=== PATIENT | female | born 1960 | race Caucasian/White ===

== ENCOUNTER 2016-07-16 07:58 | Emergency (ER) | payer OTHER ==
[2016-07-16 08:12] VITALS: BP 131/86
--- NOTE | 2016-07-16 08:35 | UC ---
Throat Pain/Nasal Jose Manuel HPI - HPI Summary HPI Summary: PATIENT PRESENTS WITH 2 DAYS OF WORSENING THROAT TIGHTNESS, HEAD CONGESTION AND DIFFICULTY SWALLOWING. SHE HAS HAD EXPOSURE TO STREP THROAT. SHE DENIES PAIN IN THROAT. SHE DENIES ALLERGIES. SHE HAS TAKEN SUDAFED WITHOUT RELIEF, BUT ONLY STARTED THE MEDICATION LAST EVENING. DENIES RUNNY NOSE. ENDORSES MILD NON -PRODUCTIVE COUGH AND EAR FULLNESS. FAMILY HISTORY POSITIVE FOR HTN, BUT OTHERWISE HEALTHY. NO SIGNIFICANT PERSONAL HISTORY AND PATIENT TAKES NO MEDICATIONS. SHE IS A NON-SMOKER. DENIES CHEST PAIN, SOB OR NECK PAIN. - History of Current Complaint Chief Complaint: UCGeneralIllness Stated Complaint: SWOLLEN GLANDS,SINUS,EAR PAIN Time Seen by Provider: 07/16/16 08:08 Hx Obtained From: Patient ?: No Onset/Duration: Gradual Onset Severity: Mild Pain Intensity: 2 Pain Scale Used: 0-10 Numeric Associated Signs & Symptoms: Positive: Dysphagia, Sinus Discomfort - Epiglottits Risk Factors Epiglottis Risk Factors: Negative - Allergies/Home Medications Allergies/Adverse Reactions: Allergies Allergy/AdvReac Type Severity Reaction Status Date / Time No Known Allergies Allergy Verified 07/16/16 08:11 Home Medications: Home Medications Ibuprofen TAB* [Advil TAB*] 400 mg PO ONCE PRN 07/16/16 [History Confirmed 07/16] Pseudoephedrine HCL ER TAB* [Sudafed 12 Hour*] 120 mg PO BEDTIME PRN 07/16/16 [ History Confirmed 07/16/16] PMH/Surg Hx/FS Hx/Imm Hx Previously Healthy: Yes - Surgical History Surgical History: Yes Surgery Procedure, Year, and Place: gallbladder - Family History Known Family History: Positive: Hypertension - Social History Occupation: Employed Full-time Lives: With Family Alcohol Use: Rare Substance Use Type: None Smoking Status (MU): Never Smoked Tobacco Review of Systems Constitutional: Negative Skin: Negative Eyes: Negative ENT: Sore Throat Respiratory: Cough Cardiovascular: Negative Motor: Negative Neurovascular: Negative Neurological: Negative All Other Systems Reviewed And Are Negative: Yes Physical Exam Triage Information Reviewed: Yes Appearance: Well-Appearing, No Pain Distress, Well-Nourished Vital Signs: Initial Vital Signs Temp 99.2 F 07/16/16 08:07 Pulse 79 07/16/16 08:07 Resp 16 07/16/16 08:07 BP 131/86 07/16/16 08:07 Pulse Ox 97 07/16/16 08:07 Vital Signs Reviewed: Yes Eye Exam: Normal Eyes: Positive: Conjunctiva Clear ENT: Positive: Pharynx normal, TMs normal Neck exam: Normal Neck: Positive: Supple, Nontender, No Lymphadenopathy Respiratory Exam: Normal Respiratory: Positive: Chest non-tender, Lungs clear Cardiovascular Exam: Normal Cardiovascular: Positive: RRR Musculoskeletal Exam: Normal Musculoskeletal: Positive: Strength Intact Skin Exam: Normal Throat Pain/Nasal Course/Dx - Course Course Of Treatment: STREP POSITIVE. PATIENT C/O DIFFICULTY SWALLOWING. RX FOR AMOXICILLIN AND PREDNISONE. ENCOURAGED NASAL SPRAYS AND RETURN PRECAUTIONS GIVEN. - Differential Dx/Diagnosis Differential Diagnosis/HQI/PQRI: Peritonsillar Abscess, Pharyngitis, Sinusitis, URI Provider Diagnoses: STREP THROAT Discharge - Discharge Plan Condition: Stable Disposition: HOME Prescriptions: Amoxicillin CAP* [Amoxicillin 500 MG CAP*] 500 mg PO Q12H #20 cap predniSONE TAB* [Deltasone TAB*] 50 mg PO DAILY #5 tab MDD 1 Patient Education Materials: Strep Throat (ED), Cold Symptoms (ED) Additional Instructions: Dx: Strep Throat You will need antibiotic medicine to treat your strep throat. Please take the antibiotic as directed. You should feel better within 2 to 3 days after you start antibiotics. You may return to work or school 24 hours after you start antibiotics. If you have any questions about your medications, please do no hesitate to call or talk with your pharmacist. How can I manage my symptoms? Use lozenges, ice, soft foods, or popsicles to soothe your throat. Drink juice, milk shakes, or soup if your throat is too sore to eat solid food. Drinking liquids can also help prevent dehydration. Gargle with salt water. Mix teaspoon salt in a 1 cup of warm water and gargle. This may help reduce swelling in your throat. Do not smoke. Nicotine and other chemicals in cigarettes and cigars can cause lung damage and make your symptoms worse. Ask your healthcare provider for information if you currently smoke and need help to quit. E-cigarettes or smokeless tobacco still contain nicotine. Talk to your healthcare provider before you use these products. How do I prevent the spread of strep throat? Wash your hands often. Use soap and water. Wash your hands after you use the bathroom, change a child's diapers, or sneeze. Wash your hands before you prepare or eat food. Do not share food or drinks. Replace your toothbrush after you have taken antibiotics for 24 hours. Humidifier in the home will help. Tylenol for discomfort. Take all medications as directed. Symptoms should resolve in 1-3 weeks. If symptoms become worse, please come back to or go to the ED. Your temperature was 99.2 at this visit. For any temps over 100.5, please take Tylenol for fevers. Your Blood Pressure was OK. Follow up with your PCP. Saline nasal sprays Prednisone 50mg daily for 5 days in the morning. Strep was positive. Amoxicillin rx to pharmacy.
== END 2016-07-16 08:49 | disposition home or self-care (01) ==
LOC: UCCORT 07:58
DX: J02.0 Streptococcal pharyngitis (principal); Z90.49 Acquired absence of other specified parts of digestive tract
CPT/HCPCS: 87651; 99202; G0463

== ENCOUNTER 2017-07-17 11:21 | Emergency (ER) | payer OTHER ==
[2017-07-17 12:05] VITALS: BP 118/74
--- NOTE | 2017-07-17 12:55 | UC ---
UC General HPI - HPI Summary HPI Summary: pt c/o sore throat since last pm. today has some mild nausea and diarrhea. no hx travel or recent antibiotic use - History of Current Complaint Chief Complaint: UCRespiratory Stated Complaint: ST/NAUSEA Time Seen by Provider: 07/17/17 12:43 Hx Obtained From: Patient Onset/Duration: Gradual Onset Pain Intensity: 7 Aggravating: nothing Alleviating: nothing Associated Signs & Symptoms: Positive: Diarrhea, Nausea. Negative: Cough, Fever , Headache, Vomiting - Allergy/Home Medications Allergies/Adverse Reactions: Allergies Allergy/AdvReac Type Severity Reaction Status Date / Time No Known Allergies Allergy Verified 07/17/17 11:59 Home Medications: Home Medications NK [No Home Medications Reported] 07/17/17 [History Confirmed 07/17/17] PMH/Surg Hx/FS Hx/Imm Hx Previously Healthy: Yes - Surgical History Surgical History: Yes Surgery Procedure, Year, and Place: gallbladder - Family History Known Family History: Positive: Hypertension - Social History Occupation: Employed Full-time Lives: With Family Alcohol Use: Rare Substance Use Type: None Smoking Status (MU): Never Smoked Tobacco - Immunization History Vaccination Up to Date: Yes Review of Systems Constitutional: Negative Skin: Negative Eyes: Negative ENT: Sore Throat Respiratory: Negative Cardiovascular: Negative Gastrointestinal: Diarrhea, Nausea Genitourinary: Negative Motor: Negative Neurovascular: Negative Musculoskeletal: Negative Neurological: Negative Psychological: Negative Is Patient Immunocompromised?: No All Other Systems Reviewed And Are Negative: Yes Physical Exam Triage Information Reviewed: Yes Appearance: Well-Appearing Vital Signs: Initial Vital Signs Temp 98.2 F 07/17/17 12:00 Pulse 72 07/17/17 12:00 Resp 18 07/17/17 12:00 BP 118/74 07/17/17 12:00 Pulse Ox 99 07/17/17 12:00 Vital Signs Reviewed: Yes Eyes: Positive: Conjunctiva Clear ENT: Positive: Pharynx normal, TMs normal. Negative: Nasal congestion, Nasal drainage Neck: Positive: Supple, Nontender, No Lymphadenopathy Respiratory: Positive: Lungs clear, Normal breath sounds Cardiovascular: Positive: RRR, No Murmur Abdomen Description: Positive: Nontender, No Organomegaly, Soft Bowel Sounds: Positive: Present Musculoskeletal: Positive: ROM Intact Neurological: Positive: Alert Psychological: Positive: Age Appropriate Behavior Skin Exam: Normal Diagnostics - Laboratory Diagnostic Studies Completed/Ordered: rapid strep=neg Course/Dx - Course Course Of Treatment: rapid strep=neg. tx supportive - Differential Dx - Multi-Symptom Provider Diagnoses: sore throat,+nausea, diarrhea. Discharge - Sign-Out/Discharge Documenting (check all that apply): Discharge/Admit/Transfer - Discharge Plan Condition: Stable Disposition: HOME Patient Education Materials: Pharyngitis (ED), Acute Nausea and Vomiting (ED), Acute Diarrhea (ED) Referrals: Yolette Eason [Primary Care Provider] - 7 Days - Billing Disposition and Condition Condition: STABLE Disposition: HOME
== END 2017-07-17 13:03 | disposition home or self-care (01) ==
LOC: UCCORT 11:21
DX: J02.9 Acute pharyngitis, unspecified (principal); R19.7 Diarrhea, unspecified; R11.0 Nausea
CPT/HCPCS: 87651; 99211; G0463

== ENCOUNTER 2018-10-02 09:27 | Emergency (ER) | payer OTHER ==
[2018-10-02 11:02] VITALS: BP 141/75
--- NOTE | 2018-10-02 11:36 | UC ---
Skin Complaint HPI - HPI Summary HPI Summary: 58-year-old woman comes in with a chief complaint of a painful rash. Patient started with some pain on her right breast yesterday. Today she noticed a rash starting with a vesicle on an erythematous base. Since this morning this been several more vesicles that have appeared. Denies any other pain or rash. No known recent contacts with poison ashely. Had chickenpox when she was a child. - History of Current Complaint Chief Complaint: UCSkin Time Seen by Provider: 10/02/18 11:21 Stated Complaint: SKIN COMPLAINT Pain Intensity: 8 - Allergy/Home Medications Allergies/Adverse Reactions: Allergies Allergy/AdvReac Type Severity Reaction Status Date / Time No Known Allergies Allergy Verified 10/02/18 10:58 Home Medications: Home Medications Ibuprofen TAB* [Advil TAB*] 400 mg PO Q6H PRN 10/02/18 [History Confirmed ] PMH/Surg Hx/FS Hx/Imm Hx Previously Healthy: Yes - Surgical History Surgical History: Yes Surgery Procedure, Year, and Place: gallbladder - Family History Known Family History: Positive: Hypertension - Social History Alcohol Use: Rare Substance Use Type: None Smoking Status (MU): Never Smoked Tobacco - Immunization History Vaccination Up to Date: Yes Review of Systems All Other Systems Reviewed And Are Negative: Yes Constitutional: Positive: Negative Skin: Positive: Rash Eyes: Positive: Negative ENT: Positive: Negative Respiratory: Positive: Negative Cardiovascular: Positive: Negative Gastrointestinal: Positive: Negative Motor: Positive: Negative Neurovascular: Positive: Negative Musculoskeletal: Positive: Negative Neurological: Positive: Negative Psychological: Positive: Negative Is Patient Immunocompromised?: No Physical Exam Triage Information Reviewed: Yes Appearance: Well-Appearing, No Pain Distress, Well-Nourished Vital Signs: Initial Vital Signs Temp 98.6 F 10/02/18 10:58 Pulse 62 10/02/18 10:58 Resp 17 10/02/18 10:58 BP 141/75 10/02/18 10:58 Pulse Ox 100 10/02/18 10:58 Vital Signs Reviewed: Yes Eye Exam: Normal Neck: Positive: Supple Respiratory: Positive: No respiratory distress Musculoskeletal: Positive: Strength Intact, ROM Intact Neurological: Positive: Alert Psychological: Positive: Age Appropriate Behavior Skin: Positive: Other - On the upper medial aspect of the right breast there is a 4 cm x 3 cm erythematous patch with vesicles filled with clear fluid. No other rash. Course/Dx - Course Course Of Treatment: The rash and history is most consistent with shingles. We'll treat for shingles. We also discussed other possibilities such as contact dermatitis and if the patient has any other symptoms or worsens she will be getting reevaluated. - Diagnoses Provider Diagnosis: Shingles Discharge - Sign-Out/Discharge Documenting (check all that apply): Patient Departure All imaging exams completed and their final reports reviewed: No Studies - Discharge Plan Condition: Stable Disposition: HOME Prescriptions: ValACYclovir (*) [Valtrex 1 GM(*)] 1 gm PO TID #21 tab Patient Education Materials: Shingles (ED) Referrals: Yolette Eason [Primary Care Provider] - Additional Instructions: FOLLOW UP WITH YOUR DOCTOR IF NOT COMPLETELY IMPROVED. GET REEVALUATED SOONER IF WORSE OR ANY QUESTIONS OR CONCERNS. - Billing Disposition and Condition Condition: STABLE Disposition: Home
== END 2018-10-02 11:51 | disposition home or self-care (01) ==
LOC: UCCORT 09:27
DX: B02.9 Zoster without complications (principal)
CPT/HCPCS: 99212; G0463

== ENCOUNTER 2019-03-10 10:32 | Emergency (ER) | payer OTHER ==
[2019-03-10 10:51] VITALS: BP 127/75
--- NOTE | 2019-03-10 11:50 | UC ---
Dizzy HPI HPI Summary: dizziness x 5 days was mild at first now getting worse worse with movements, better with rest, no n/v/d/c , no fever, no chills, no change if vision / photophobia no sinus pressure, no ear pain or ringing - History Of Current Complaint Chief Complaint: UCDizziness Stated Complaint: DIZZINESS GETTING WORSE Time Seen by Provider: 03/10/19 10:59 Hx Obtained From: Patient Onset/Duration: Gradual Onset, Lasting Days - 5, Still Present Timing: Constant Severity Initially: Mild Severity Currently: Moderate Pain Intensity: 0 Pain Scale Used: 0-10 Numeric Character: Dizzy Aggravating Factor(s): Exertion, Position Change Alleviating Factor(s): Rest Associated Signs And Symptoms: Negative: Nausea, Vomiting, Diaphoresis, Tinnitus , Chest Pain, SOB, Palpitations, Unsteady Gait, Visual Changes, Decreased Oral Intake, Change In Medication, Change In Diet, OTC Medications - Allergies/Home Medications Allergies/Adverse Reactions: Allergies Allergy/AdvReac Type Severity Reaction Status Date / Time No Known Allergies Allergy Verified 03/10/19 10:44 PMH/Surg Hx/FS Hx/Imm Hx Previously Healthy: Yes - Surgical History Surgical History: Yes Surgery Procedure, Year, and Place: gallbladder - Family History Known Family History: Positive: Hypertension - Social History Alcohol Use: Rare Substance Use Type: None Smoking Status (MU): Never Smoked Tobacco - Immunization History Vaccination Up to Date: Yes Review of Systems All Other Systems Reviewed And Are Negative: Yes Constitutional: Positive: Negative Skin: Positive: Negative Eyes: Positive: Negative ENT: Positive: Negative Respiratory: Positive: Negative Is Patient Immunocompromised?: No Physical Exam Triage Information Reviewed: Yes Appearance: Well-Appearing, No Pain Distress, Well-Nourished Vital Signs: Initial Vital Signs Temp 99.1 F 03/10/19 10:45 Pulse 69 03/10/19 10:45 Resp 18 03/10/19 10:45 BP 127/75 03/10/19 10:45 Pulse Ox 100 03/10/19 10:45 Vital Signs Reviewed: Yes Eye Exam: Normal Eyes: Positive: Conjunctiva Clear ENT: Positive: Normal ENT inspection, Hearing grossly normal, Pharynx normal Neck: Positive: Supple, Nontender, No Lymphadenopathy Respiratory: Positive: Chest non-tender, Lungs clear, Normal breath sounds Cardiovascular: Positive: RRR, No Murmur, Pulses Normal Musculoskeletal: Positive: Strength Intact, ROM Intact, No Edema Neurological: Positive: Alert UC Physical Exam Vital Signs On Initial Exam: Initial Vitals Temp Pulse Resp BP Pulse Ox 99.1 F 69 18 127/75 100 03/10/19 10:45 03/10/19 10:45 03/10/19 10:45 03/10/19 10:45 03/10/19 10:45 - Neurological Exam Neurological: Normal, Sensory/Motor Intact, CN Intact II-III, Normal Gait, Speech Normal Dizzy Course/Dx - Differential Dx/Diagnosis Provider Diagnosis: Vertigo Discharge ED - Sign-Out/Discharge Documenting (check all that apply): Patient Departure All imaging exams completed and their final reports reviewed: No Studies - Discharge Plan Condition: Stable Disposition: HOME Prescriptions: Meclizine TAB* [Antivert 12.5 TAB*] 25 mg PO TID PRN #15 tab PRN Reason: Dizziness Patient Education Materials: Vertigo (ED) Referrals: Yolette Eason [Primary Care Provider] - 7 Days - Billing Disposition and Condition Condition: STABLE Disposition: Home
== END 2019-03-10 11:12 | disposition home or self-care (01) ==
LOC: UCCORT 10:32
DX: R42 Dizziness and giddiness (principal)
CPT/HCPCS: 99212; G0463